=== PATIENT | female | born 1970 | race Caucasian/White ===

== ENCOUNTER → 2025-04-09 07:56 | Outpatient (REF) | payer BC, SELFPAY | LOC: HWWDC 07:56 | PROVIDERS: ATTENDING PHYSICIAN Physician Assistant Medical | DX: Z12.31 Encounter for screening mammogram for malignant neoplasm of breast (principal) | CPT/HCPCS: 77063; 77067 ==

== ENCOUNTER → 2025-04-23 09:22 | Outpatient (REF) | payer BC, SELFPAY | LOC: WDC 09:22 | PROVIDERS: ATTENDING PHYSICIAN Physician Assistant Medical | DX: R92.8 Other abnormal and inconclusive findings on diagnostic imaging of breast (principal) | CPT/HCPCS: 76642 ==

== ENCOUNTER → 2025-10-25 11:14 | Outpatient (REF) | payer BC, SELFPAY | LOC: HWWDC 11:14 | PROVIDERS: ATTENDING PHYSICIAN Physician Assistant Medical | DX: Z12.31 Encounter for screening mammogram for malignant neoplasm of breast (principal) | CPT/HCPCS: 77061; 77065 ==